=== PATIENT | female | born 1965 ===

== ENCOUNTER 2025-01-22 01:10 | Outpatient (CLI) | payer SELFPAY ==
--- NOTE | 2025-01-22 | DI.US_ITS ---
APPROVED REPORT EXAM: Comprehensive 2D, Doppler, and color-flow Echocardiogram Patient Location: Out-Patient Maintenance Team Leader: Piotr Thapa RDCS (AE) Indications: CCM, fatigue, murmur Other Information Study Quality: Fair Conclusion Normal left ventricular wall thickness and chamber size. Ejection fraction is 60 to 65%. Wall motion is normal Normal right ventricular size and function Both atria are normal in size There is no structural or hemodynamically significant valvular disease Trivial pericardial effusion Wall motion Left Ventricle The left ventricle is normal size. The left ventricular systolic function is normal. The left ventricular ejection fraction is within the normal range. There is normal left ventricular wall thickness. There is normal LV segmental wall motion. There is no ventricular septal defect visualized. LVEF is 60-65%. Right Ventricle The right ventricle is normal size. The right ventricular systolic function is normal. Atria The left atrium size is normal. The right atrium size is normal. The interatrial septum is intact with no evidence for an atrial septal defect. Aortic Valve The aortic valve is normal in structure. Aortic valve is trileaflet. There is no aortic valvular stenosis. No aortic regurgitation is present. Mitral Valve The mitral valve is normal in structure. No evidence of mitral valve stenosis. Trace mitral regurgitation. Tricuspid Valve The tricuspid valve is normal in structure. There is no tricuspid valve stenosis. Trace tricuspid regurgitation. Pulmonic Valve The pulmonary valve is normal in structure. There is no pulmonic valvular stenosis. Trace pulmonic regurgitation. Great Vessels The aortic root is normal in size. The ascending aorta is normal in size. IVC is normal in size and collapses >50% with inspiration. Pericardium Trace pericardial effusion. 2D Dimensions IVSD d PLAX 0.94 cm F: 0.6-1.0 Ao Root d 2.29 cm F: 2.7 - 3.3 LVPW d PLAX 0.91 cm F: 0.6 - 1.0 Ao Asc Diam d 2.66 cm F: 2.3 - 3.1 LVID d PLAX 4.73 cm F: 3.8 - 5.2 LVDs 3.21 cm F: 2.2 - 3.5 LV EF Teichholz 60.5 % FS 32.28 % LV EDV (Teich) 104.1 mL LV ESV (Teich) 41.1 mL Stroke Vol Index (Teich) 40.87 M-Mode TAPSE 2.10 cm (M/F) >1.7 Auto EF LV EDV A4C 53.1 mL LV EDV A2C 54.6 mL LV EDV BP 54.6 mL LV ESV A4C 21.4 mL LV ESV A2C 19.1 mL LV ESV BP 20.4 mL LVEF(%) A4C 59.7 % LVEF(%) A2C 65.1 % LVEF(%) BP 62.7 % LV SV A4C 31.7 ml LV SV A2C 35.5 ml LV SV BP 34.3 ml LV CO A4C 2.1 L/min LV CO A2C 2.3 L/min LV CO BP 2.2 L/min HR A4C 65.22 BPM HR A2C 65.81 BPM LV EDV Index (BP) LA Volume LA Length A4C 3.5 cm LA Length A2C 3.9 cm LA Area A4C s 5.73 cm2 LA Area A2C s 7.93 cm2 LA Vol A4C A-L 8.06 mL LA Vol A2C A-L 13.51 mL LA Vol Biplane A-L 11.1 mL LA Vol/BSA A4C A-L LA Vol/BSA A2C A-L LA Vol/BSA BP A-L 7.2 mL/m2 LA Vol A4C MOD 7.4 mL LA Vol A2C MOD 12.9 mL LA Vol BP MOD 10.4 mL RA Volume RA Area A4C 4.8 cm2 RA ESV A4C (A-L) 6.4mL RA Vol/BSA A4C A-L RA Length A4C 3.0 cm RA ESV A4C (MOD) 6.2mL LV Diastology MV E' medial 0.087 (>0.07 m/s) MV E Vmax 1.19 (0.4-1.3 m/s) MV E/E' MED 13.67 (<14) MV A Vmax 0.90 (0.4-1.3 m/s) MV E' lateral 0.128 (>0.1 m/s) E/A Ratio 1.3 MV E/E' LAT 9.28 (<14) MV E' Average 0.107 m/s MV E/E'(average) 11.06 Aortic Valve AoV Vmax 1.62 m/s LVOT Vmax 1.38 m/s AoV Peak Grad 10.5 mmHg LVOT Peak Grad 7.6 mmHg AoV Area (Vmax) 2.12 cm2 LVOT VTI 0.300 m AoV VTI 0.358 m LVOT Mean Grad 3.9 mmHg AoV Mean Erlin. 1.07 m/s LVOT SV 74.53 mL AoV Mean Grad 5.4 mmHg LVOT Diam s 1.75 cm AoV Area (VTI) 2.08 cm2 AV Regurg Peak Gr. 10.47 mmHg Velocity Ratio 0.85 Mitral Valve MV DT 262 (160-240 msec) Pulmonary Valve PV Vmax 1.50 (0.5-1.5 m/s) RVOT Vmax 0.97 m/s PV Peak Grad 9.0 mmHg RVOT Peak Gr. 3.8 mmHg PV Mean Erlin 1.05 m/s RVOT VTI 0.238 m PV Mean Grad 5.0 mmHg RVOT Mean Gr. 2.0 mmHg
== END 2025-01-22 01:30 ==
LOC: DI 01:11
PROVIDERS: PCP Specialist/Technologist Athletic Trainer; Visit Provider Internal Medicine Cardiovascular Disease
DX: R01.1 Cardiac murmur, unspecified (principal)
CPT/HCPCS: 93306